=== PATIENT | female | born 1985 | race Caucasian/White ===

== ENCOUNTER 2021-09-27 06:12 | Emergency (ER) | payer SELFPAY ==
[~2021-09-27] VITALS: Ht 175.3 cm; Wt 81.8 kg
[2021-09-27 06:18] VITALS: BP 129/84; TEMP 98.1
[2021-09-27] MEDS ORDERED: NORCO 325 MG-51 TAB PO (06:52)
[2021-09-27] MEDS ORDERED: FLEXERIL 1010 MG/TAB PO (06:52)
[2021-09-27] MEDS ORDERED: MOTRIN 800800 MG/TAB PO (06:52)
[2021-09-27 07:05] VITALS: PULSE 83
== END 2021-09-27 07:02 | disposition home or self-care (01) ==
LOC: COL.ER 06:12
DX: M25.511 Pain in right shoulder (principal); X50.1XXA Overexertion from prolonged static or awkward postures, initial encounter; Y93.89 Activity, other specified